=== PATIENT | male | born 1965 | race Caucasian/White ===

== ENCOUNTER 2016-10-04 19:16 | Emergency (ER) | payer OTHER ==
[~2016-10-04] VITALS: Ht 188 cm; Wt 105.9 kg
[2016-10-04 19:49] LABS: HEMATOCRIT 50.2 % (38.0-50.0); MCH 30.7 PG (29.0-34.0); MCHC 34.5 G/DL (30.0-36.0); MEAN PLAT.VOLUME 9.3 uM^3 (9.0-12.4); PLATELET COUNT 256 K/uL (156-360); RBC DIS.WIDTH-CV 12.5 % (11.8-14.6); RBC DIS.WIDTH-SD 41.1 % (39-53); RED BLOOD COUNT 5.64 M/uL (4.00-5.50); WHITE BLOOD COUNT 9.9 K/uL (4.1-10.2)
[2016-10-04 20:13] LABS: CHLORIDE 104 mEq/L (99-109); POTASSIUM 3.4 mEq/L (3.7-5.4); SODIUM 140 mEq/L (136-147)
[2016-10-04 20:15] LABS: GLUCOSE 112 mg/dL (70-99)
[2016-10-04 20:19] LABS: GFR ESTIMATE (CALCULATED) > 59 mL/min/; UREA NITROGEN (BUN) 12 mg/dL (9-23)
[2016-10-04 20:24] LABS: MAGNESIUM 2.2 mg/dL (1.3-2.7); TROP-I INTERPRETATION NEGATIVE; TROPONIN-I < 0.01 ng/mL (0.0-0.30)
[2016-10-04 22:38] LABS: TROP-I INTERPRETATION NEGATIVE; TROPONIN-I < 0.01 ng/mL (0.0-0.30)
[2016-10-05 00:17] VITALS: BP 140/90
== END 2016-10-05 00:21 | disposition home or self-care (01) ==
LOC: EME 19:16
PROVIDERS: Emergency Medicine
DX: R00.2 Palpitations (principal); E86.0 Dehydration; E87.6 Hypokalemia; I10 Essential (primary) hypertension
CPT/HCPCS: 71020; 80048; 83735; 84484; 85027; 93005; 99281; 99285; J2060; J7030